=== PATIENT | male | born 1950 | race Caucasian/White ===

== ENCOUNTER 2017-06-07 13:13 | Emergency (ER) | payer OTHER ==
[~2017-06-07] VITALS: Ht 167.6 cm; Wt 82.6 kg
[2017-06-07 13:21] VITALS: BP 157/99; PULSE 75; RESP 16; TEMP 98.2; O2SAT 97
[2017-06-07] MEDS ORDERED: SIMV40TA PO (13:40)
[2017-06-07] MEDS ORDERED: LISI10TA3 PO (13:40)
[2017-06-07] MEDS ORDERED: HYDR25TA5 PO (13:40)
[2017-06-07] MEDS ORDERED: TRAM50TA PO (13:40)
[2017-06-07] MEDS ORDERED: BUSP30TA PO (13:40)
[2017-06-07] MEDS ORDERED: RESP: ALBUTEROL 2.5 MG/IPRATROPIUM 0.5 MG NEB (SCH) INH ONE (13:45)
[2017-06-07] MEDS ORDERED: SODIUM CHLORIDE 0.9% FLUSH 10 ML FLUSH IVF PRN (13:45)
[2017-06-07 13:48] VITALS: O2SAT 98
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
[2017-06-07 13:59] VITALS: BP 167/93; PULSE 65; RESP 18; O2SAT 95
[2017-06-07 14:09] LABS: AUTOMATED NEUTROPHIL # 5.6 TH/MM3 (1.8-7.7); BASOPHIL % 0.6 % (0.0-2.0); EOSINOPHIL # 0.1 TH/MM3 (0-0.4); EOSINOPHIL % 1.3 % (0.0-4.0); HEMATOCRIT 42.2 % (39.0-51.0); HEMO FLAGS DIFF FINAL; LYMPH % 18.8 % (9.0-44.0); LYMPHOCYTE # 1.5 TH/MM3 (1.0-4.8); MEAN CORPUSCULAR HEMOGLOBIN 29.6 PG (27.0-34.0); MEAN CORPUSCULAR HGB CONC 33.7 % (32.0-36.0); MONO % 7.6 % (0.0-8.0); NEUT % 71.7 % (16.0-70.0); PLATELET COUNT 197 TH/MM3 (150-450); RED CELL DISTRIBUTION WIDTH 14.1 % (11.6-17.2); WHITE BLOOD COUNT 7.8 TH/MM3 (4.0-11.0)
[2017-06-07 14:26] LABS: CHLORIDE 108 MEQ/L (98-107); POTASSIUM 3.9 MEQ/L (3.5-5.1); SODIUM (NA) 142 MEQ/L (136-145)
[2017-06-07 14:29] LABS: ANION GAP 6 MEQ/L (5-15); BICARBONATE 28.2 MEQ/L (21.0-32.0); BLOOD UREA NITROGEN 12 MG/DL (7-18); MAGNESIUM 2.1 MG/DL (1.5-2.5)
[2017-06-07 14:31] LABS: APTT (PATIENT) 26.1 SEC (24.3-30.1); INTERNATIONAL NORMALIZED RATIO 1.1 RATIO; PROTHROMBIN TIME - PATIENT 11.9 SEC (9.8-11.6)
[2017-06-07 14:32] LABS: GLOMERULAR FILTRATION RATE 100 ML/MIN (>89)
--- NOTE | 2017-06-07 14:32 | RADRPT ---
EXAM DATE/TIME: 06/07/2017 14:17 [facility] COMPARISON: No previous studies available for comparison. INDICATIONS : Chest pain and left arm numbness MEDICAL HISTORY : None. SURGICAL HISTORY : Fusion, cervical. ENCOUNTER: Initial ACUITY: 1 week PAIN SCORE: 3/10 LOCATION: Bilateral chest FINDINGS: A single view of the chest demonstrates the lungs to be symmetrically aerated without evidence of mas s, infiltrate or effusion. The cardiomediastinal contours are unremarkable. Osseous structures are intact. CONCLUSION: No acute intrathoracic disease. Fredy Yuan MD on June 07, 2017 at 14:28 Board Certified Radiologist. This report was verified electronically.
[2017-06-07 14:35] LABS: CREATINE KINASE 249 U/L (39-308)
[2017-06-07 14:48] LABS: CKMB 5.1 NG/ML (0.5-3.6)
[2017-06-07] MEDS ORDERED: PRED50 PO (15:07)
[2017-06-07] MEDS ORDERED: VENTAER INH (15:08)
[2017-06-07 15:33] VITALS: BP 152/84
--- NOTE | 2017-06-08 16:52 | EKG ---
Date Performed: 06/07/2017 Time Performed: 13:49:56 PTAGE: 66 years EKG: Sinus rhythm NON-SPECIFIC ST/T WAVE CHANGES NO PREVIOUS TRACING DOCTOR: Harman Conrad Interpretating Date/Time 06/08/2017 16:50:56
== END 2017-06-07 15:34 | disposition home or self-care (01) ==
LOC: PHED 13:13
DX: M54.12 Radiculopathy, cervical region (principal); R06.2 Wheezing; I10 Essential (primary) hypertension; E78.00 Pure hypercholesterolemia, unspecified; F17.200 Nicotine dependence, unspecified, uncomplicated; Z79.899 Other long term (current) drug therapy; Z87.39 Personal history of other diseases of the musculoskeletal system and connective tissue; Z86.59 Personal history of other mental and behavioral disorders; Z87.81 Personal history of (healed) traumatic fracture
CPT/HCPCS: 71010; 80048; 82550; 82552; 83735; 84484; 85025; 85610; 85730; 93005; 94664

== ENCOUNTER 2017-12-04 10:52 | Inpatient (IN) | payer OTHER, MEDICARE ==
[~2017-12-04] VITALS: Ht 167.6 cm; Wt 70.1 kg
[~2017-12-04 10:52] MED LIST: BUSP30TA PO; HYDR25TA5 PO; LISI10TA3 PO; PRED50 PO; SIMV40TA PO; TRAM50TA PO; VENTAER INH
--- NOTE | 2017-12-04 12:29 | PD ---
HPI Chief Complaint: Psychiatric Symptoms Time Seen by Provider: 11:41 Travel History International Travel<30 days: No Contact w/Intl Traveler<30days: No Traveled to known affect area: No History of Present Illness HPI 67-year-old male brought in under the Ravi act. Patient has history of PTSD and [facility]. He is recently had increased bizarre behavior including talking to animal in his backyard. He feels his medications are not helping him and feels suicidal. He has no medical complaints at this time. He is allergic to codeine. PFSH Past Medical History Arthritis: Yes Anxiety: Yes Depression: Yes High Cholesterol: Yes Diminished Hearing: Yes Hypertension: Yes Psychiatric: Yes (PTSD) Tetanus Vaccination: < 5 Years Influenza Vaccination: Yes Past Surgical History Neurologic Surgery: Yes (LAMINECTOMY) Tonsillectomy: Yes Social History Alcohol Use: No Tobacco Use: No Substance Use: No Allergies-Medications (Allergen,Severity, Reaction): Coded Allergies: codeine (Unverified Allergy, Unknown, 07/16/17) Reported Meds & Prescriptions Reported Meds & Active Scripts Active Ventolin Hfa 18 GM Inh (Albuterol Sulfate) 90 Mcg/Act Aer 2 Puff INH Q4-6H PRN Prednisone 50 Mg Tab 50 Mg PO DAILY 5 Days Reported Hydrochlorothiazide 25 Mg Tab 25 Mg PO DAILY Buspirone (Buspirone HCl) 30 Mg Tab 30 Mg PO BID Simvastatin 40 Mg Tab 40 Mg PO HS Lisinopril 10 Mg Tab 10 Mg PO DAILY Tramadol (Tramadol HCl) 50 Mg Tab 50 Mg PO BID PRN Review of Systems Except as stated in HPI: all other systems reviewed are Neg General / Constitutional: No: Fever Eyes: No: Visual changes HENT: No: Headaches Cardiovascular: No: Chest Pain or Discomfort Respiratory: No: Shortness of Breath Gastrointestinal: No: Abdominal Pain Genitourinary: No: Dysuria Musculoskeletal: No: Pain Skin: No Rash Neurologic: No: Weakness Psychiatric: Positive: Anxiety, Depression, Suicidal Ideations Endocrine: No: Polydipsia Hematologic/Lymphatic: No: Easy Bruising Physical Exam Narrative GENERAL: Patient is cooperative and pleasant. He is in no acute distress. SKIN: Warm and dry. Normal color. Normal turgor. No signs of trauma. HEAD: Atraumatic. Normocephalic. EYES: Pupils equal and round. No scleral icterus. No injection or drainage. ENT: No nasal bleeding or discharge. Mucous membranes pink and moist. Pharynx is clear. Airway is patent. NECK: Trachea midline. Supple and nontender. CARDIOVASCULAR: Regular rate and rhythm. RESPIRATORY: No accessory muscle use. Clear to auscultation. Breath sounds equal bilaterally. MUSCULOSKELETAL: Extremities without clubbing, cyanosis, or edema. No obvious deformities. NEUROLOGICAL: Awake and alert. No obvious cranial nerve deficits. Motor grossly within normal limits. Five out of 5 muscle strength in the arms and legs. Normal speech. PSYCHIATRIC: Appropriate mood and affect; insight and judgment normal. Data Data Orders Orders Diet Regular Basic (12/04/17 Lunch) Complete Blood Count With Diff (12/04/17 11:41) Comprehensive Metabolic Panel (12/04/17 11:41) Psych Screen (12/04/17 11:41) Drug Screen, Random Urine (12/04/17 11:41) MDM Medical Decision Making Medical Screen Exam Complete: Yes Emergency Medical Condition: Yes Differential Diagnosis Ravi act. Psychosis. PTSD. Narrative Course Psychiatric labs ordered per protocol. Patient is medically cleared for psychiatric evaluation. Condition: Stable Dennis Mondragon Dec 04, 2017 12:29
[2017-12-04 12:47] LABS: AUTOMATED NEUTROPHIL # 9.3 TH/MM3 (1.8-7.7); BASOPHIL % 0.4 % (0.0-2.0); EOSINOPHIL # 0.1 TH/MM3 (0-0.4); EOSINOPHIL % 0.5 % (0.0-4.0); HEMOGLOBIN 15.2 GM/DL (13.0-17.0); LYMPH % 9.9 % (9.0-44.0); LYMPHOCYTE # 1.1 TH/MM3 (1.0-4.8); MEAN CELL VOLUME 89.7 FL (80.0-100.0); MEAN CORPUSCULAR HGB CONC 34.6 % (32.0-36.0); MEAN PLATELET VOLUME 8.7 FL (7.0-11.0); MONO % 6.9 % (0.0-8.0); MONOCYTE # 0.8 TH/MM3 (0-0.9); NEUT % 82.3 % (16.0-70.0); PLATELET COUNT 245 TH/MM3 (150-450); RED BLOOD COUNT 4.91 MIL/MM3 (4.50-5.90); RED CELL DISTRIBUTION WIDTH 15.3 % (11.6-17.2); WHITE BLOOD COUNT 11.3 TH/MM3 (4.0-11.0)
[2017-12-04 13:03] LABS: ALBUMIN 3.8 GM/DL (3.4-5.0); ALT (GPT) 24 U/L (12-78); AST (GOT) 19 U/L (15-37); BLOOD UREA NITROGEN 15 MG/DL (7-18); CALCIUM 9.1 MG/DL (8.5-10.1); CHLORIDE 105 MEQ/L (98-107); CREATININE 0.75 MG/DL (0.60-1.30); GLOMERULAR FILTRATION RATE 103 ML/MIN (>89); GLUCOSE,RANDOM 123 MG/DL (74-106); SODIUM (NA) 138 MEQ/L (136-145)
[2017-12-04 13:05] LABS: ALKALINE PHOSPHATASE 72 U/L (45-117); TOTAL BILIRUBIN ADULT 0.3 MG/DL (0.2-1.0); TOTAL PROTEIN 7.2 GM/DL (6.4-8.2)
[2017-12-04 14:39] VITALS: BP 152/81; PULSE 69; RESP 18; TEMP 98.2; O2SAT 98
[2017-12-04] MEDS ORDERED: LORazepam 2 MG/ML VIAL IM ONE (14:40)
--- NOTE | 2017-12-04 14:59 | HHI.HP ---
Provisional Diagnosis Admission Date Dec 04, 2017 at 13:44 Wana I. Brief psychotic disorder Certification of Person's Competence To Provide Express and Informed Consent I have personally examined Vahe Holland , a person being served at [facility] on, Dec 04, 2017 14:48. Express and informed consent means consent voluntarily given in writing, by a competent person, after sufficient explanation and disclosure of the subject matter involved to enable the person to make a knowing and willful decision without any element of force, fraud, deceit, duress, or other form of constraint or coercion. This person is 18 years of age or older, is not now known to be incompetent to consent to treatment with a guardian advocate, and does not have a health care surrogate or proxy currently making medical treatment decisions. I have found this person to be one of the following: [] Competent to provide express and informed consent, as defined above, for voluntary admission to this facility and is competent to provide express and informed consent for treatment. He/she has the consistent capacity to make well reasoned, willful, and knowing decisions concerning his or her medical or mental health treatment. The person fully and consistently understands the purpose of the admission for examination/placement and is fully capable of personally exercising all rights [place] [x] Incompetent to provide express and informed consent to voluntary admission, and this is incompetent to provide express and informed consent to treatment. The person must be transferred to involuntary status and a petition for a guardian advocate filed with the Circuit Court. [] Refusing to provide express and informed consent to voluntary admission but is competent to provide express and informed consent for treatment. The person must be discharged or transferred to involuntary status. Form shall be completed within 24 hours of a person's arrival at the receiving facility and filed in the clinical record of each person: 1. Admitted on a voluntary basis 2. Permitted to provide express and informed consent to his/her own treatment 3. Allowed to transfer from involuntary to voluntary status 4. Prior to permitting a person to consent to his or her own treatment after having been previously found incompetent to consent to treatment. History of Present Illness Capacity: Lacks Capacity HPI 67-year-old male brought in under a Ravi act for bizarre behavior including psychotic symptoms. Patient reportedly is treated through the [facility] and is feeling angry due to active posttraumatic stress disorder. He describes nightmares and flashbacks. According to the Ravi act he does not want to hurt himself but does want to hurt others. According to the main ED physician, he expressed suicidal thoughts. He also stated he wants to hurt someone who he describes as a victim's advocate at the [facility]. He states his medication is not working and he is talking to animals in his backyard. The patient is a poor historian and he is obviously psychotic. He is experiencing auditory hallucinations. He is experiencing paranoid delusions. He feels that multiple people in the hospital system, the government system, etc. are trying to harm him. He provides unreasonable answers to questions, including the doses and frequency of the medications he takes. For example, he stated he took 30 mg of BuSpar 4 times a day. He demonstrates frequent looseness of associations and is unable to provide a cogent history as to why he is here. Patient's toxicology screen is negative Review of Systems Psychiatric: COMPLAINS OF: Anxiety, Confusion, Mood changes, Hallucinations, Suicidal Ideation, Homicidal Ideation Except as stated in HPI: all other systems reviewed are Neg Past Psych History Psychological trauma history Patient reports he has posttraumatic stress disorder and is treated by the [facility]. Violence risk - others (6 mos) High Violence risk - self (6 mos) High Substance Abuse History Drugs/Alcohol past 12 months Denied Past Family Social History Coded Allergies: codeine (Unverified Allergy, Unknown, 07/16/17) Active Scripts Albuterol 18 GM Inh (Ventolin Hfa 18 GM Inh) 90 Mcg/Act Aer, 2 PUFF INH Q4-6H Y for SHORTNESS OF BREATH, #1 INHALER 0 Refills Prov:Newton Ma MD 06/07/17 Prednisone (Prednisone) 50 Mg Tab, 50 MG PO DAILY for 5 Days, TAB 0 Refills Prov:Newton Ma MD 06/07/17 Reported Medications Hydrochlorothiazide (Hydrochlorothiazide) 25 Mg Tab, 25 MG PO DAILY, #30 TAB 0 Refills 06/07/17 Buspirone (Buspirone) 30 Mg Tab, 30 MG PO BID for Anxiety, TAB 0 Refills 06/07/17 Simvastatin (Simvastatin) 40 Mg Tab, 40 MG PO HS for Cholesterol Management, # 30 TAB 0 Refills 06/07/17 Lisinopril (Lisinopril) 10 Mg Tab, 10 MG PO DAILY, #30 TAB 0 Refills 06/07/17 Tramadol (Tramadol) 50 Mg Tab, 50 MG PO BID Y for PAIN, TAB 0 Refills 06/07/17 Current Medications Medications (Trade) Dose Ordered Sig/Leidy Route Start Time Stop Time Status Last Admin (Ativan Inj) 2 mg ONCE ONCE IM 12/04/17 14:40 12/04/17 14:41 12/04/17 13:50 (Ativan) 1 mg Q6H PRN PO 12/04/17 15:00 (Ativan Inj) 1 mg Q6H PRN IM 12/04/17 15:00 (Benadryl) 50 mg Q6H PRN PO 12/04/17 13:45 UNV (Benadryl Inj) 50 mg Q6H PRN IM 12/04/17 15:00 (Tylenol) 650 mg Q4H PRN PO 12/04/17 15:00 (Milk Of Magnesia Liq) 30 ml DAILY PRN PO 12/04/17 15:00 (Mag-Al Plus Susp Liq) 30 ml Q6H PRN PO 12/04/17 13:45 UNV Family Psych History Unknown. Patient poor historian. Social History Patient reports he is retired. He is not currently employed. He does receive [employer] benefits. He states he is not . He has minimal family support. He denies drug abuse and alcohol abuse. Patient's Strengths (min. 2) Verbal and has access to healthcare. Physical Exam GENERAL: SKIN: Warm and dry. HEAD: Normocephalic. EYES: No scleral icterus. No injection or drainage. NECK: Supple, trachea midline. No JVD or lymphadenopathy. CARDIOVASCULAR: Regular rate and rhythm without murmurs, gallops, or rubs. RESPIRATORY: Breath sounds equal bilaterally. No accessory muscle use. GASTROINTESTINAL: Abdomen soft, non-tender, nondistended. MUSCULOSKELETAL: No cyanosis, or edema. BACK: Nontender without obvious deformity. No CVA tenderness. Lab Results Test 12/04/17 12:20 12/04/17 12:35 White Blood Count 11.3 TH/MM3 Red Blood Count 4.91 MIL/MM3 Hemoglobin 15.2 GM/DL Hematocrit 44.0 % Mean Corpuscular Volume 89.7 FL Mean Corpuscular Hemoglobin 31.0 PG Mean Corpuscular Hemoglobin Concent 34.6 % Red Cell Distribution Width 15.3 % Platelet Count 245 TH/MM3 Mean Platelet Volume 8.7 FL Neutrophils (%) (Auto) 82.3 % Lymphocytes (%) (Auto) 9.9 % Monocytes (%) (Auto) 6.9 % Eosinophils (%) (Auto) 0.5 % Basophils (%) (Auto) 0.4 % Neutrophils # (Auto) 9.3 TH/MM3 Lymphocytes # (Auto) 1.1 TH/MM3 Monocytes # (Auto) 0.8 TH/MM3 Eosinophils # (Auto) 0.1 TH/MM3 Basophils # (Auto) 0.0 TH/MM3 CBC Comment DIFF FINAL Differential Comment Blood Urea Nitrogen 15 MG/DL Creatinine 0.75 MG/DL Random Glucose 123 MG/DL Total Protein 7.2 GM/DL Albumin 3.8 GM/DL Calcium Level 9.1 MG/DL Alkaline Phosphatase 72 U/L Aspartate Amino Transf (AST/SGOT) 19 U/L Alanine Aminotransferase (ALT/SGPT) 24 U/L Total Bilirubin 0.3 MG/DL Sodium Level 138 MEQ/L Potassium Level 3.9 MEQ/L Chloride Level 105 MEQ/L Carbon Dioxide Level 28.0 MEQ/L Anion Gap 5 MEQ/L Estimat Glomerular Filtration Rate 103 ML/MIN Urine Opiates Screen NEG Urine Barbiturates Screen NEG Urine Amphetamines Screen NEG Urine Benzodiazepines Screen NEG Urine Cocaine Screen NEG Urine Cannabinoids Screen NEG Mental Status Examination Appearance: Appropriate Consciousness: Alert Orientation: Person Motor Activity: Normal gait Speech: Rapid Language: Perseveration Fund of Knowledge: Adequate Attention and Concentration: Inadequate Memory: Impaired Mood: Other Affect: Labile Thought Process & Associations: Loose associations, Circumstantial, Disorganized, Tangential Thought Content: Bizarre thinking, Hallucinations, Preoccupations, Delusional Hallucination Type: Auditory Delusion Type: None, Paranoid Suicidal Ideation: Yes Suicidal Plan: No Suicidal Intention: No Homicidal Ideation: Yes Homicidal Plan: No Homicidal Intention: No Insight: Poor Judgment: Impulsive Assessment & Plan Problem List: (1) Brief psychotic disorder ICD Codes: F23 - Brief psychotic disorder Assessment & Plan Estimated LOS: days. 67-year-old male presents under a Ravi act with history of suicidal ideation, homicidal ideation, paranoid delusions of being persecuted by government and healthcare workers, loose associations and auditory hallucinations. Patient remains a poor historian but this adds to his risks of harming himself or others as he is obviously confused and disorganized. He has underlying medical conditions for which she is supposed to take multiple medicines. He appears unable to care for himself and provides erroneous answers to the medicines and doses that he takes. For these reasons he is being admitted for further evaluation and treatment. This physician has ordered a CBC and comprehensive metabolic panel to determine if any infectious process or metabolic process is causing or contributing to his psychosis and confusion. Additionally, this physician has ordered a thyroid -stimulating hormone level, vitamin B-12 level and vitamin D level as the patient may have deficiencies in these areas which cause or contribute to his psychosis and confusion. This physician has ordered a hep us consult to help manage what appears to be COPD-type symptoms, cardiovascular disease, hypertension, etc. Additionally, this physician has ordered an EKG to determine the patient's cardiac conduction status as psychotropic medicines as yet to be prescribed, may adversely affect the electrical system of his heart. This physician spoke with the patient's nurse, Cecelia, regarding his recent behavior. Case management will also be involved to assist with information gathering and disposition planning. Arnol Werner MD Dec 04, 2017 14:59
[2017-12-04] MEDS ORDERED: diphenhydrAMINE HCL 50 MG CAP PO PRN (15:00)
[2017-12-04] MEDS ORDERED: diphenhydrAMINE HCL 50 MG/ML VIAL IM PRN (15:00)
[2017-12-04] MEDS ORDERED: MAGNESIUM HYDROXIDE SUSP 30 ML CUP PO PRN (15:00)
[2017-12-04] MEDS ORDERED: LORazepam 2 MG/ML VIAL IM PRN (15:00)
[2017-12-04] MEDS ORDERED: ALUMINUM/MAGNESIUM/SIMETH 30 ML CUP PO PRN (15:00)
[2017-12-04 17:01] VITALS: BP 160/89; PULSE 76; RESP 18; O2SAT 96
[2017-12-04 18:00] VITALS: BP 162/85; PULSE 77; RESP 18; TEMP 98
[2017-12-05 05:40] VITALS: BP 175/100; PULSE 82; RESP 18; TEMP 97.6; O2SAT 98
[2017-12-05] MEDS ORDERED: cloNIDine HCL 0.1 MG TAB PO PRN (07:30)
[2017-12-05] MEDS ORDERED: RESP: ALBUTEROL 2.5 MG/IPRATROPIUM 0.5 MG NEB (PRN) NEB (09:15)
--- NOTE | 2017-12-05 09:30 | PD.CONS ---
HPI Service [facility] Hospitalists Consult Requested By Psychiatry Reason for Consult Medical management Primary Care Physician [facility] Diagnoses: History of Present Illness 57 year-old man with a history of PTSD, schizophrenia, hypertension was brought in and admitted to inpatient psychiatry secondary to suicidal and homicidal ideations. Patient is currently under Ravi act. He was noted patient to have increased and worsening bizarre behavior. He denies any homicidal ideation during my exam. He has no chest pain or shortness of breath Review of Systems Except as stated in HPI: all other systems reviewed are Neg Past Family Social History Allergies: Coded Allergies: codeine (Unverified Allergy, Unknown, 07/16/17) Past Medical History Arthritis: Yes Anxiety: Yes Depression: Yes High Cholesterol: Yes Diminished Hearing: Yes Hypertension: Yes Psychiatric: Yes (PTSD) Past Surgical History Neurologic Surgery: Yes (LAMINECTOMY) Tonsillectomy: Yes Family History Noncontributory Social History Alcohol Use: No Tobacco Use: No Substance Use: No Physical Exam Vital Signs Vital Signs Date Time Temp Pulse Resp B/P (MAP) Pulse Ox O2 Delivery O2 Flow Rate FiO2 12/05/17 05:40 97.6 82 18 175/100 (125) 98 12/04/17 18:00 98.0 77 18 162/85 (110) 12/04/17 17:46 12/04/17 17:01 76 18 160/89 (112) 96 Room Air 12/04/17 16:38 12/04/17 14:39 98.2 69 18 152/81 (104) 98 Room Air Physical Exam GENERAL: This is a well-nourished, well-developed patient, in no apparent distress. SKIN: No rashes, ecchymoses or lesions. Cool and dry. HEAD: Atraumatic. Normocephalic. No temporal or scalp tenderness. EYES: Pupils equal round and reactive. Extraocular motions intact. No scleral icterus. No injection or drainage. ENT: Nose without bleeding, purulent drainage or septal hematoma. Throat without erythema, tonsillar hypertrophy or exudate. Uvula midline. Airway patent. NECK: Trachea midline. No JVD or lymphadenopathy. Supple, nontender, no meningeal signs. CARDIOVASCULAR: Regular rate and rhythm without murmurs, gallops, or rubs. RESPIRATORY: Clear to auscultation. Breath sounds equal bilaterally. No wheezes , rales, or rhonchi. GASTROINTESTINAL: Abdomen soft, non-tender, nondistended. No hepato-splenomegaly , or palpable masses. No guarding. MUSCULOSKELETAL: Extremities without clubbing, cyanosis, or edema. No joint tenderness, effusion, or edema noted. No calf tenderness. Negative Homans sign bilaterally. NEUROLOGICAL: Awake and alert. Cranial nerves II through XII intact. Motor and sensory grossly within normal limits. Five out of 5 muscle strength in all muscle groups. Normal speech. Laboratory Laboratory Tests Test 12/04/17 12:20 12/04/17 12:35 White Blood Count 11.3 Red Blood Count 4.91 Hemoglobin 15.2 Hematocrit 44.0 Mean Corpuscular Volume 89.7 Mean Corpuscular Hemoglobin 31.0 Mean Corpuscular Hemoglobin Concent 34.6 Red Cell Distribution Width 15.3 Platelet Count 245 Mean Platelet Volume 8.7 Neutrophils (%) (Auto) 82.3 Lymphocytes (%) (Auto) 9.9 Monocytes (%) (Auto) 6.9 Eosinophils (%) (Auto) 0.5 Basophils (%) (Auto) 0.4 Neutrophils # (Auto) 9.3 Lymphocytes # (Auto) 1.1 Monocytes # (Auto) 0.8 Eosinophils # (Auto) 0.1 Basophils # (Auto) 0.0 CBC Comment DIFF FINAL Differential Comment Blood Urea Nitrogen 15 Creatinine 0.75 Random Glucose 123 Total Protein 7.2 Albumin 3.8 Calcium Level 9.1 Alkaline Phosphatase 72 Aspartate Amino Transf (AST/SGOT) 19 Alanine Aminotransferase (ALT/SGPT) 24 Total Bilirubin 0.3 Sodium Level 138 Potassium Level 3.9 Chloride Level 105 Carbon Dioxide Level 28.0 Anion Gap 5 Estimat Glomerular Filtration Rate 103 Urine Opiates Screen NEG Urine Barbiturates Screen NEG Urine Amphetamines Screen NEG Urine Benzodiazepines Screen NEG Urine Cocaine Screen NEG Urine Cannabinoids Screen NEG Result Diagram: 12/04/17 1220 12/04/17 1220 Assessment and Plan Assessment and Plan 67 year-old man with Acute mood behavior Suicidal ideations History of PTSD/schizophrenia Management per psychiatry Continue current Ravi act Hypertension Resume lisinopril and hydrochlorothiazide Hyperlipidemia Resume statin Elevated blood glucose level Check hemoglobin A1c Leukocytosis Secondary to stress reactive, continue to monitor DVT prophylaxis: Encourage ambulation Thank you for this consultation Code Status Full code Discussed Condition With Patient Sacha Lanier MD Dec 05, 2017 09:30
[2017-12-05 10:11] LABS: BASOPHIL % 0.5 % (0.0-2.0); EOSINOPHIL # 0.1 TH/MM3 (0-0.4); EOSINOPHIL % 0.6 % (0.0-4.0); HEMATOCRIT 46.1 % (39.0-51.0); HEMOGLOBIN 15.8 GM/DL (13.0-17.0); LYMPH % 12.7 % (9.0-44.0); LYMPHOCYTE # 1.1 TH/MM3 (1.0-4.8); MEAN CELL VOLUME 89.9 FL (80.0-100.0); MEAN CORPUSCULAR HEMOGLOBIN 30.9 PG (27.0-34.0); MEAN CORPUSCULAR HGB CONC 34.4 % (32.0-36.0); MEAN PLATELET VOLUME 8.6 FL (7.0-11.0); MONO % 8.1 % (0.0-8.0); MONOCYTE # 0.7 TH/MM3 (0-0.9); NEUT % 78.1 % (16.0-70.0); PLATELET COUNT 258 TH/MM3 (150-450); RED BLOOD COUNT 5.13 MIL/MM3 (4.50-5.90); RED CELL DISTRIBUTION WIDTH 15.5 % (11.6-17.2); WHITE BLOOD COUNT 8.9 TH/MM3 (4.0-11.0)
[2017-12-05 10:35] LABS: ALBUMIN 3.5 GM/DL (3.4-5.0); AST (GOT) 20 U/L (15-37); BICARBONATE 22.9 MEQ/L (21.0-32.0); BLOOD UREA NITROGEN 17 MG/DL (7-18); CALCIUM 8.9 MG/DL (8.5-10.1); CHLORIDE 103 MEQ/L (98-107); GLOMERULAR FILTRATION RATE 96 ML/MIN (>89); GLUCOSE,RANDOM 125 MG/DL (74-106); SODIUM (NA) 136 MEQ/L (136-145)
[2017-12-05 10:37] LABS: CHOLESTEROL 226 MG/DL (120-200); TRIGLYCERIDES 151 MG/DL (42-150)
[2017-12-05 11:04] LABS: ALKALINE PHOSPHATASE 75 U/L (45-117); ALT (GPT) 23 U/L (12-78); CHOLESTEROL/ HDL RATIO 5.25 RATIO; LDL CHOLESTEROL 153 MG/DL (0-99); TOTAL BILIRUBIN ADULT 0.5 MG/DL (0.2-1.0)
[2017-12-05] MEDS: HYDROCHLOROTHIAZIDE 25 MG TAB PO SCH (14:50)
[2017-12-05] MEDS: LISINOPRIL 10 MG TAB PO SCH (14:50)
--- NOTE | 2017-12-05 15:13 | PD.PSY.CON ---
Provisional Diagnosis Admission Date Dec 04, 2017 at 13:44 Rewey I. 1. Brief psychotic disorder 2. History of PTSD Rewey II. Deferred History of Present Illness Service Psychiatry Consult Requested By Dr. Werner Reason for Consult Second opinion for involuntary psychiatric hospitalization Primary Care Physician [facility] HPI From Dr. Werner's H&P: 67-year-old male brought in under a Ravi act for bizarre behavior including psychotic symptoms. Patient reportedly is treated through the [facility] system and is feeling angry due to active posttraumatic stress disorder. He describes nightmares and flashbacks. According to the Ravi act he does not want to hurt himself but does want to hurt others. According to the main ED physician, he expressed suicidal thoughts. He also stated he wants to hurt someone who he describes as a victim's advocate at the [facility]. He states his medication is not working and he is talking to animals in his backyard. The patient is a poor historian and he is obviously psychotic. He is experiencing auditory hallucinations. He is experiencing paranoid delusions. He feels that multiple people in the hospital system, the government system, etc. are trying to harm him. He provides unreasonable answers to questions, including the doses and frequency of the medications he takes. For example, he stated he took 30 mg of BuSpar 4 times a day. He demonstrates frequent looseness of associations and is unable to provide a cogent history as to why he is here. Patient's toxicology screen is negative On my examination today: Patient seen and examined with nurse. Chart reviewed. Case discussed with nursing staff. Prior to my evaluation, I observe the patient yelling and agitated at the phone on the unit. On my evaluation today, patient presents as oddly related. He describes himself as being in "a highly agitated state." His thought process is tangential. He appears internally stimulated and describes "irritation with what I see and touch and smell." He is guarded. He denies SI/HI but seems unreliable to contract for safety. Mood is irritable and affect is consistent with stated mood. Nurse has obtained collateral information from patient's sister, and I have reviewed this with her. Remainder of the psychiatric ROS is negative. No physical complaints. Past psychiatric history: The patient reports a history of PTSD. He says that he follows at the [facility] clinic with Shauna Corral. When I ask about a history of previous psychiatric admissions or suicide attempts, he replies "that's classified." Family history: The patient denies a family history of mental illness. Chemical dependency history: The patient alludes to some sort of history of substance use but insists that it is "in the past." Sr. reports history of alcohol use problems per nurse. Social history: The patient served in the [employer]. 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 He has a service dog. Social history is limited because of patient's current psychiatric condition. Review of Systems ROS Limitations: Psychotic, Poor Historian Except as stated in HPI: all other systems reviewed are Neg Past Family Social History Coded Allergies: codeine (Unverified Allergy, Unknown, 07/16/17) Past Medical History See electronic medical record Active Scripts Albuterol 18 GM Inh (Ventolin Hfa 18 GM Inh) 90 Mcg/Act Aer, 2 PUFF INH Q4-6H Y for SHORTNESS OF BREATH, #1 INHALER 0 Refills Prov:Newton Ma MD 06/07/17 Prednisone (Prednisone) 50 Mg Tab, 50 MG PO DAILY for 5 Days, TAB 0 Refills Prov:Newton Ma MD 06/07/17 Reported Medications Hydrochlorothiazide (Hydrochlorothiazide) 25 Mg Tab, 25 MG PO DAILY, #30 TAB 0 Refills 06/07/17 Buspirone (Buspirone) 30 Mg Tab, 30 MG PO BID for Anxiety, TAB 0 Refills 06/07/17 Simvastatin (Simvastatin) 40 Mg Tab, 40 MG PO HS for Cholesterol Management, # 30 TAB 0 Refills 06/07/17 Lisinopril (Lisinopril) 10 Mg Tab, 10 MG PO DAILY, #30 TAB 0 Refills 06/07/17 Tramadol (Tramadol) 50 Mg Tab, 50 MG PO BID Y for PAIN, TAB 0 Refills 06/07/17 Current Medications Medications (Trade) Dose Ordered Sig/Leidy Route Start Time Stop Time Status Last Admin (Ativan) 1 mg Q6H PRN PO 12/04/17 15:00 (Ativan Inj) 1 mg Q6H PRN IM 12/04/17 15:00 (Benadryl) 50 mg Q6H PRN PO 12/04/17 15:00 (Benadryl Inj) 50 mg Q6H PRN IM 12/04/17 15:00 (Tylenol) 650 mg Q4H PRN PO 12/04/17 15:00 (Milk Of Magnesia Liq) 30 ml DAILY PRN PO 12/04/17 15:00 (Mag-Al Plus Susp Liq) 30 ml Q6H PRN PO 12/04/17 15:00 (Catapres) 0.1 mg Q8HR PRN PO 12/05/17 07:30 12/05/17 08:08 (Hydrodiuril) 25 mg DAILY PO 12/05/17 11:00 12/05/17 14:50 (Prinivil) 10 mg DAILY PO 12/05/17 10:00 12/05/17 14:50 (Pravachol) 80 mg HS PO 12/05/17 21:00 (Duoneb Neb) 1 ampule Q2HR NEB PRN NEB 12/05/17 09:15 Family Psych History See above Social History see above Patient's Strengths (min. 2) In a monitored setting. Verbally fluent. Physical Exam Physical examination completed by hospitalist enrollment consultant. On my examination today, the patient appears to be in no acute physical distress. No motor abnormalities noted. No signs of withdrawal or intoxication noted. Labs and vitals reviewed: Vital Signs Vital Signs Date Time Temp Pulse Resp B/P (MAP) Pulse Ox O2 Delivery O2 Flow Rate FiO2 12/05/17 05:40 97.6 82 18 175/100 (125) 98 12/04/17 17:01 Room Air Lab Results Test 12/05/17 09:40 White Blood Count 8.9 TH/MM3 Red Blood Count 5.13 MIL/MM3 Hemoglobin 15.8 GM/DL Hematocrit 46.1 % Mean Corpuscular Volume 89.9 FL Mean Corpuscular Hemoglobin 30.9 PG Mean Corpuscular Hemoglobin Concent 34.4 % Red Cell Distribution Width 15.5 % Platelet Count 258 TH/MM3 Mean Platelet Volume 8.6 FL Neutrophils (%) (Auto) 78.1 % Lymphocytes (%) (Auto) 12.7 % Monocytes (%) (Auto) 8.1 % Eosinophils (%) (Auto) 0.6 % Basophils (%) (Auto) 0.5 % Neutrophils # (Auto) 7.0 TH/MM3 Lymphocytes # (Auto) 1.1 TH/MM3 Monocytes # (Auto) 0.7 TH/MM3 Eosinophils # (Auto) 0.1 TH/MM3 Basophils # (Auto) 0.0 TH/MM3 CBC Comment DIFF FINAL Differential Comment Blood Urea Nitrogen 17 MG/DL Creatinine 0.80 MG/DL Random Glucose 125 MG/DL Total Protein 7.0 GM/DL Albumin 3.5 GM/DL Calcium Level 8.9 MG/DL Alkaline Phosphatase 75 U/L Aspartate Amino Transf (AST/SGOT) 20 U/L Alanine Aminotransferase (ALT/SGPT) 23 U/L Total Bilirubin 0.5 MG/DL Sodium Level 136 MEQ/L Potassium Level 4.0 MEQ/L Chloride Level 103 MEQ/L Carbon Dioxide Level 22.9 MEQ/L Anion Gap 10 MEQ/L Estimat Glomerular Filtration Rate 96 ML/MIN Triglycerides Level 151 MG/DL Cholesterol Level 226 MG/DL LDL Cholesterol 153 MG/DL HDL Cholesterol 43.0 MG/DL Cholesterol/HDL Ratio 5.25 RATIO Vitamin B12 Level 448 PG/ML 25-Hydroxy Vitamin D Total 30.2 ng/ML Thyroid Stimulating Hormone 3rd Gen 0.332 uIU/ML Ethyl Alcohol Level LESS THAN 3 MG/DL Labs reviewed. TSH low. EKG sinus rhythm QTcH 373ms. Mental Status Examination Appearance: Appropriate Consciousness: Alert, Vigilant Orientation: Person, Place (at least) Motor Activity: Normal gait Speech: Pressured Language: Perseveration Fund of Knowledge: Adequate Attention and Concentration: Inadequate Memory: Impaired Mood: Irritable Affect: Irritable Thought Process & Associations: Tangential Thought Content: Bizarre thinking, Hallucinations, Preoccupations, Delusional Hallucination Type: Auditory (Appears int stim) Delusion Type: Paranoid Suicidal Ideation: No (unreliable to contract for safety) Suicidal Plan: No Suicidal Intention: No Homicidal Ideation: No (unreliable to contract for safety) Homicidal Plan: No Homicidal Intention: No Insight: Poor Judgment: Poor Assessment & Plan Problem List: (1) Brief psychotic disorder ICD Codes: F23 - Brief psychotic disorder Assessment & Plan Given the circumstances of the patient's presentation here and presentation on my examination today, I concur with Dr. Werner that the patient meets criteria for involuntary psychiatric hospitalization under the Ravi act. I completed the second opinion paperwork. I note that Dr. Werner has additionally requested a healthcare surrogate and guardian advocate, and I have instructed the nurse to obtain consent from healthcare surrogate for all medication and treatment. I will be assuming care of the patient. Patient remains psychotic today, and differential diagnosis includes primary psychiatric illness such as schizophrenia, drug induced psychosis, psychosis due to general medical condition. --TSH low. Check free T4. Also check ammonia, JULIO CÉSAR, RPR, HIV as potential causes of psychosis. Obtain outpatient treatment records. If no previous evidence of psychosis, to consider MRI brain. --Check extended UTox. Possible h/o EtOH. I will add CIWA with Ativan, thiamine/folate, seizure/fall prec. Exam not consistent with DTs presently. --I will offer Zyprexa Zydis 5mg PO qHS for empiric management of patient's psychosis. This agent would also be helpful in the event that the patient is suffering from a mood disorder with psychotic features, such as BPAD mixed or manic state. --Hospitalist input noted and appreciated. --Continue other medications and care as ordered. Discharge Planning Pending psychiatric stabilization Request HC Surrog/Guard Advoc?: Yes Rajeev Weber MD Dec 05, 2017 15:13
[2017-12-05] MEDS ORDERED: LORazepam 2 MG TAB PO PRN (15:15)
[2017-12-05] MEDS ORDERED: LORazepam 2 MG/ML VIAL IV PUSH PRN ×4 (15:15)
[2017-12-05] MEDS ORDERED: LORazepam 1 MG TAB PO PRN (15:15)
[2017-12-05] MEDS ORDERED: FLUMAZENIL 0.5 MG/5 ML VIAL IV PUSH PRN (15:15)
[2017-12-05 16:23] LABS: HEMOGLOBIN A1C 5.8 % (4.3-6.0)
[2017-12-05 16:45] VITALS: BP 165/85; PULSE 80; RESP 18; TEMP 98.8; O2SAT 97
[2017-12-05] MEDS: PRAVASTATIN SOD 80 MG TAB PO SCH (20:36)
[2017-12-05] MEDS: OLANZapine ODT 5 MG TAB PO SCH ×2 (20:37→21:00)
--- NOTE | 2017-12-05 22:33 | EKG ---
Date Performed: 12/05/2017 Time Performed: 11:12:08 PTAGE: 67 years EKG: Sinus rhythm SEPTAL MYOCARDIAL INFARCTION , OF INDETERMINATE AGE MODERATE T-WAVE ABNORMALITY, CONSIDER INFERIOR I SCHEMIA ABNORMAL ECG PREVIOUS TRACING : 06/07/2017 13.49 DOCTOR: Reginaldo Cantrell Interpretating Date/Time 12/05/2017 22:32:09
[2017-12-06 05:58] VITALS: BP 151/87; PULSE 73; RESP 18; TEMP 96.7; O2SAT 98
[2017-12-06] MEDS: THIAMINE HCL 100 MG TAB PO SCH (09:19)
[2017-12-06] MEDS: FOLIC ACID 1 MG TAB PO SCH (09:19)
[2017-12-06] MEDS: HYDROCHLOROTHIAZIDE 25 MG TAB PO SCH (09:19)
[2017-12-06] MEDS: LISINOPRIL 10 MG TAB PO SCH ×2 (09:19→20:54)
--- NOTE | 2017-12-06 10:30 | HHI.PYPN ---
Subjective Chief Complaint: Psychosis Remarks Patient seen and examined with counselor. Chart reviewed. Patient refused Zyprexa when offered. Case discussed with nurse and in treatment team. Per nurse, patient was agitated and cursing this morning. He is noted by OT to be grandiose and intrusive. On my exam, patient remains oddly related with stilted , overly formal speech. He smiles inappropriately and appears internally stimulated. He reports that his sleep is disrupted, which he attributes to hyperarousal from PTSD. He exhibits some loose associations. He does try to disrobe at one point to show us his hernias. Affect is irritable. No physical complaints. With patient's permission, spoke with outpatient mental health provider Shauna Corral at [facility] [phone]. She notes that patient has chart history of depression and PTSD. He frequently abuses cannabis. He is prescribed BuSpar and hydroxyzine, but his adherence with medications is spotty at best. He has previous trials of Abilify, Seroquel, several SSRIs, Wellbutrin , and trazodone. He has been jailed in the past for drug offenses but has no history of violent behavior that Dr. Corral is aware of. He participated in the [facility] program in the past. Review of Systems ROS Limitations: Psychotic, Poor Historian Except as stated in HPI: all other systems reviewed are Neg Mental Status Examination Appearance: Appropriate Consciousness: Alert, Vigilant Orientation: Person, Place (at least) Motor Activity: Normal gait Speech: Rapid Language: Perseveration Fund of Knowledge: Adequate Attention and Concentration: Inadequate Memory: Impaired Mood: Irritable Affect: Irritable Thought Process & Associations: Loose associations, Tangential Thought Content: Bizarre thinking, Hallucinations, Preoccupations, Delusional Hallucination Type: Other (Remains int stim) Delusion Type: Paranoid Suicidal Ideation: No (unreliable to contract for safety) Suicidal Plan: No Suicidal Intention: No Homicidal Ideation: No (unreliable to contract for safety) Homicidal Plan: No Homicidal Intention: No Insight: Poor Judgment: Poor Results Labs Item Value Date Time Ammonia 39 MCMOL/L H 12/06/17 1140 Free Thyroxine 1.09 NG/DL 12/06/17 1140 Ammonia level mildly elevated, likely incidental. FT4 wnl. ETox pending. Serologies pending. Vitals/IOs Vital Signs Date Time Temp Pulse Resp B/P (MAP) Pulse Ox O2 Delivery O2 Flow Rate FiO2 12/06/17 05:58 96.7 73 18 151/87 (108) 98 12/04/17 17:01 Room Air Assessment & Plan Problem List: (1) Brief psychotic disorder ICD Codes: F23 - Brief psychotic disorder Assessment & Plan Patient remains actively psychotic, irritable and easily agitated. He refused Zyprexa last night, and given reported adherence issues in the community, I think it is prudent to switch to an agent with a readily available MARTI. D/c Zyprexa and start Risperdal M-Tabs 1mg PO BID with Haldol 5mg IM BID p.r.n. refuses PO Risperdal. Could consider Consta or Sustenna. I will additionally provide Haldol IM p.r.n. severe agitation as patient is growing increasingly irritable. Psychosis is apparently not part of patient's diagnostic schema outpatient and so patient has likely not been worked up for psychosis. I will therefore check MRI brain as well as follow up outstanding labs. I also suspect some degree of personality pathology and will request neuropsychology consult for MMPI. Continue to monitor on high acuity unit. Continue other medications and care as ordered. Justification for Cont. Inpt. Medication changes. Concern for impairment in safety. Impairment in reality construction. High risk for decompensation in less restrictive environment. Discharge Planning Pending psychiatric stabilization Request HC Surrog/Guard Advoc?: Yes Rajeev Weber MD Dec 06, 2017 10:30
--- NOTE | 2017-12-06 13:16 | HHI.PR ---
Subjective Remarks Patient seen and examined Chest pain, shortness of breath States he missed his appointment for left hernia repair today Objective Vitals Vital Signs Date Time Temp Pulse Resp B/P (MAP) Pulse Ox O2 Delivery O2 Flow Rate FiO2 12/06/17 05:58 96.7 73 18 151/87 (108) 98 12/05/17 16:45 98.8 80 18 165/85 (111) 97 Result Diagram: 12/05/17 0940 12/05/17 0940 Objective Remarks GENERAL: NAD SKIN: Warm and dry. HEAD: Normocephalic. EYES: No scleral icterus. No injection or drainage. NECK: Supple, trachea midline. No JVD or lymphadenopathy. CARDIOVASCULAR: Regular rate and rhythm without murmurs, gallops, or rubs. RESPIRATORY: Breath sounds equal bilaterally. No accessory muscle use. GASTROINTESTINAL: Abdomen soft, non-tender, nondistended. MUSCULOSKELETAL: No cyanosis, or edema. : left hernia BACK: Nontender without obvious deformity. No CVA tenderness. A/P Assessment and Plan 67 year-old man with Acute mood behavior Suicidal ideations History of PTSD/schizophrenia Management per psychiatry Continue current Ravi act Hypertension Continue lisinopril however will increase to 10 mg by mouth twice a day and continue hydrochlorothiazide Hyperlipidemia Continue statin Elevated blood glucose level Hemoglobin A1c 5.8 Leukocytosis-resolved Secondary to stress reactive, continue to monitor Left hernia Outpatient follow-up surgery for repair DVT prophylaxis: Encourage ambulation Sacha Lanier MD Dec 06, 2017 13:16
--- NOTE | 2017-12-06 13:41 | PD.TTN ---
Patient Problems 1. Discharge planning 2. Medication compliance 3. Knowledge deficit 4. Lack of coping skills Progress Toward Goals Provider Present: Dr. Kortney Weber Provider Input: Pt medication regiment has been adjusted including addition of Zyprexa with possible implementation of long acting injection at some point. Nurse(s) Present: Meenakshi Malcolm RN Nurse(s) Input: Pt appears agitated, blunted, flat, demanding and medication compliant. Psychiatric Counselors Present: ODILON Mishra Psych Therapist Input: Pt appears easily agitated, bizarre, delusional, psychotic, disorganized and somewhat guarded. [facility] and appears to be minimizing symptoms at this time. Insight and judgment into condition and need for care appeared poor. Pt appears to struggle with coping and emotional regulation skills. He has been compliant with medication regiment. Group Spec/RT/OT/GONZALEZ Present: LISA Moses Group Spec/RT/OT/GONZALEZ Input: Pt attends groups but appears intrusive and grandiose. Discharge Plan Pt will be discharged home and will continue to follow up with [facility] after discharge for outpatient services. Documentation Scribe: ODILON Mishra Jonathan LMHC Dec 06, 2017 13:41
[2017-12-06] MEDS ORDERED: HALOPERIDOL LACTATE 5 MG/ML AMP IM PRN ×2 (13:45)
[2017-12-06 17:21] LABS: HEMOGLOBIN A1C 5.8 % (4.3-6.0)
[2017-12-06 18:10] VITALS: BP 150/83; PULSE 84; RESP 18; TEMP 97.1; O2SAT 97
[2017-12-06] MEDS: PRAVASTATIN SOD 80 MG TAB PO SCH (20:54)
[2017-12-06] MEDS: risperiDONE ODT 1 MG TAB PO SCH (20:54)
[2017-12-07 05:52] VITALS: BP 170/91; PULSE 73; RESP 18; TEMP 97.6; O2SAT 97
[2017-12-07] MEDS: HYDROCHLOROTHIAZIDE 25 MG TAB PO SCH (08:39)
[2017-12-07] MEDS: FOLIC ACID 1 MG TAB PO SCH (08:39)
[2017-12-07] MEDS: LISINOPRIL 10 MG TAB PO SCH ×2 (08:40→20:33)
[2017-12-07] MEDS: risperiDONE ODT 1 MG TAB PO SCH ×2 (08:40→20:33)
[2017-12-07] MEDS: THIAMINE HCL 100 MG TAB PO SCH (09:00)
--- NOTE | 2017-12-07 11:03 | HHI.PR ---
Subjective Remarks Patient seen and examined No acute event overnight Taking his meds Objective Vitals Vital Signs Date Time Temp Pulse Resp B/P (MAP) Pulse Ox O2 Delivery O2 Flow Rate FiO2 12/07/17 05:52 97.6 73 18 170/91 (117) 97 12/06/17 18:10 97.1 84 18 150/83 (105) 97 Result Diagram: 12/05/17 0940 12/05/17 0940 Objective Remarks GENERAL: NAD SKIN: Warm and dry. HEAD: Normocephalic. EYES: No scleral icterus. No injection or drainage. NECK: Supple, trachea midline. No JVD or lymphadenopathy. CARDIOVASCULAR: Regular rate and rhythm without murmurs, gallops, or rubs. RESPIRATORY: Breath sounds equal bilaterally. No accessory muscle use. GASTROINTESTINAL: Abdomen soft, non-tender, nondistended. MUSCULOSKELETAL: No cyanosis, or edema. : left hernia BACK: Nontender without obvious deformity. No CVA tenderness. A/P Assessment and Plan 67 year-old man with Acute mood behavior Suicidal ideations History of PTSD/schizophrenia Management per psychiatry Continue current Ravi act Hypertension Continue [id number] mg by mouth twice a day and hydrochlorothiazide Hyperlipidemia Continue statin Elevated blood glucose level Hemoglobin A1c 5.8 Leukocytosis-resolved Secondary to stress reactive, continue to monitor Left hernia Outpatient follow-up surgery for repair DVT prophylaxis: Encourage ambulation [facility] will sign off, Reconsult Sacha Santos MD Dec 07, 2017 11:03
[2017-12-07] MEDS: LORazepam 1 MG TAB PO PRN (15:55)
--- NOTE | 2017-12-07 17:53 | HHI.PYPN ---
Subjective Chief Complaint: Psychosis Remarks Patient was seen and case discussed with nursing. No was reviewed from yesterday. No reports of agitation were given today per nursing. He has been compliant with his medications. He remains overly formal and disorganized. Patient continues to have poor insight into his admission. Per nursing he has at times grandiose feeling superior to others and believing he has special musical ability. He was asked about some of the threatening statements he made to [employer] that he would be out in the community at the same time that they were again patient downplays this as a miscommunication. Nursing notes Angeloisaiah in his allergies so we will change his IMs to Zyprexa Mental Status Examination Appearance: Appropriate Consciousness: Alert, Vigilant Orientation: Person, Place (at least) Motor Activity: Normal gait Speech: Rapid Language: Perseveration Fund of Knowledge: Adequate Attention and Concentration: Inadequate Memory: Impaired Mood: Irritable Affect: Irritable Thought Process & Associations: Loose associations, Tangential Thought Content: Bizarre thinking, Hallucinations, Preoccupations, Delusional Hallucination Type: Other (Remains int stim) Delusion Type: Paranoid Suicidal Ideation: No (unreliable to contract for safety) Suicidal Plan: No Suicidal Intention: No Homicidal Ideation: No (unreliable to contract for safety) Homicidal Plan: No Homicidal Intention: No Insight: Poor Judgment: Poor Results Vitals/IOs Vital Signs Date Time Temp Pulse Resp B/P (MAP) Pulse Ox O2 Delivery O2 Flow Rate FiO2 12/07/17 05:52 97.6 73 18 170/91 (117) 97 12/04/17 17:01 Room Air Assessment & Plan Problem List: (1) Brief psychotic disorder ICD Codes: F23 - Brief psychotic disorder Assessment & Plan Change IM backup to Zyprexa. Justification for Cont. Inpt. Patient would decompensate in a less restrictive setting Request HC Surrog/Guard Advoc?: Yes Emigdoi Granado DO Dec 07, 2017 17:53
[2017-12-07] MEDS ORDERED: OLANZapine IM 10 MG VIAL IM PRN (18:00)
[2017-12-07 18:02] VITALS: BP 151/85; PULSE 94; RESP 19; TEMP 99.1; O2SAT 98
[2017-12-07] MEDS: PRAVASTATIN SOD 80 MG TAB PO SCH (20:33)
[2017-12-08 06:05] VITALS: BP 136/83; PULSE 77; RESP 18; TEMP 97.7; O2SAT 95
[2017-12-08] MEDS: HYDROCHLOROTHIAZIDE 25 MG TAB PO SCH (08:32)
[2017-12-08] MEDS: LISINOPRIL 10 MG TAB PO SCH ×2 (08:32→20:24)
[2017-12-08] MEDS: risperiDONE ODT 1 MG TAB PO SCH ×2 (08:32→20:24)
[2017-12-08] MEDS: FOLIC ACID 1 MG TAB PO SCH (08:32)
[2017-12-08] MEDS: THIAMINE HCL 100 MG TAB PO SCH (08:35)
--- NOTE | 2017-12-08 14:15 | HHI.PYPN ---
Subjective Chief Complaint: Psychosis Remarks Patient was seen and case discussed with nursing. Patient's insight is improving. He is very verbose today and describes various self-realizations about his behaviors and thought process. Unclear if this is manipulative behavior or genuine. He is behaving well on the unit per nursing. He went to groups and says he had a productive session and discussed some of his goals after discharge. He continues to state that he never threatened anyone before admission. No arguments with any staff today, tolerating medications well Mental Status Examination Appearance: Appropriate Consciousness: Alert, Vigilant Orientation: Person, Place (at least) Motor Activity: Normal gait Speech: Rapid Language: Perseveration Fund of Knowledge: Adequate Attention and Concentration: Inadequate Memory: Impaired Mood: Appropriate Affect: Appropriate Thought Process & Associations: Circumstantial, Tangential Thought Content: Preoccupations Hallucination Type: Other (Remains int stim) Delusion Type: Paranoid Suicidal Ideation: No (unreliable to contract for safety) Suicidal Plan: No Suicidal Intention: No Homicidal Ideation: No (unreliable to contract for safety) Homicidal Plan: No Homicidal Intention: No Insight: Poor Judgment: Poor Results Vitals/IOs Vital Signs Date Time Temp Pulse Resp B/P (MAP) Pulse Ox O2 Delivery O2 Flow Rate FiO2 12/08/17 06:05 97.7 77 18 136/83 (100) 95 12/04/17 17:01 Room Air Assessment & Plan Problem List: (1) Brief psychotic disorder ICD Codes: F23 - Brief psychotic disorder Assessment & Plan Continue current treatment plan Justification for Cont. Inpt. Patient would decompensate in a less restrictive setting Request HC Surrog/Guard Advoc?: Yes Emigdio Granado DO Dec 08, 2017 14:15
[2017-12-08] MEDS ORDERED: hydrOXYzine HCL 50 MG TAB PO PRN (17:00)
[2017-12-08 17:28] VITALS: BP 156/84; PULSE 99; RESP 17; TEMP 98.4; O2SAT 96
[2017-12-08] MEDS: PRAVASTATIN SOD 80 MG TAB PO SCH (20:24)
[2017-12-09] MEDS: LORazepam 1 MG TAB PO PRN ×2 (00:16→13:22)
[2017-12-09] MEDS: ACETAMINOPHEN 325 MG TAB PO PRN ×2 (00:18→13:23)
[2017-12-09 05:44] VITALS: BP 136/80; PULSE 85; RESP 18; TEMP 96.6; O2SAT 96
[2017-12-09] MEDS: risperiDONE ODT 1 MG TAB PO SCH (09:12)
[2017-12-09] MEDS: FOLIC ACID 1 MG TAB PO SCH (09:12)
[2017-12-09] MEDS: THIAMINE HCL 100 MG TAB PO SCH (09:12)
[2017-12-09] MEDS: LISINOPRIL 10 MG TAB PO SCH (09:12)
[2017-12-09] MEDS: HYDROCHLOROTHIAZIDE 25 MG TAB PO SCH (09:13)
[2017-12-09 11:32] LABS: ANA SCREEN POS (NEG)
[2017-12-09] MEDS ORDERED: RISP25P IM (11:35)
[2017-12-09] MEDS ORDERED: RISP1TAB2 PO (11:35)
--- NOTE | 2017-12-09 11:36 | HHI.DS ---
Psychiatry Discharge Summary Inpatient Psychiatric care?: Yes Advance Directive: No Reason Not Provided: declined Mental Health AdvanceDirective: No Health Care Proxy: No Admission Admission Date Dec 04, 2017 at 13:44 Admission Diagnosis: (1) Brief psychotic disorder ICD Code: F23 - Brief psychotic disorder Brief History 67-year-old male brought in under a Ravi act for bizarre behavior including psychotic symptoms. Patient reportedly is [facility] and is feeling angry due to active posttraumatic stress disorder. He describes nightmares and flashbacks. According to the Ravi act he does not want to hurt himself but does want to hurt others. According to the main ED physician, he expressed suicidal thoughts. He also stated he wants to hurt someone who he describes as a victim's advocate at the [facility]. He states his medication is not working and he is talking to animals in his backyard. The patient is a poor historian and he is obviously psychotic. He is experiencing auditory hallucinations. He is experiencing paranoid delusions. He feels that multiple people in the hospital system, the government system, etc. are trying to harm him. He provides unreasonable answers to questions, including the doses and frequency of the medications he takes. For example, he stated he took 30 mg of BuSpar 4 times a day. He demonstrates frequent looseness of associations and is unable to provide a cogent history as to why he is here. Patient's toxicology screen is negative Tobacco Use In Past 30 Days: No Tobacco Past 30 Days Alcohol Use: Never Hospital Course Patient was admitted to a locked, inpatient psychiatric unit. A general medical consultation was obtained. Appropriate precautions were in place throughout patient's hospital stay. Patient was seen and examined on the unit by psychiatry and also visited by counselor. Psychotropic medications were adjusted. Patient was started on Risperdal for the management of psychotic symptoms to good effect. He tolerated the Risperdal well without side effects and was agreeable to initiating Risperdal Consta. Patient had improvement in presenting psychiatric symptomatology during the course of his hospital stay. There was no evidence of any suicidality or homicidality on the inpatient unit. The patient's behavior improved with benefit of psychopharmacologic treatment. Collateral was obtained from the patient's sister as well as from his outpatient mental health provider, Dr. Corral. On the day of discharge: Patient seen and examined with nurse. Chart reviewed. Case discussed with nursing staff. No behavioral issues overnight. Case discussed with counselor who has reached out to the patient's sister today. Per counselor, sister visited the patient over the weekend and found him much improved. She feels that he is safe and appropriate for discharge at this time. On my examination today, the patient is requesting discharge from the inpatient psychiatric unit today. He denies any suicidal or homicidal ideation, intent or plan on direct questioning and contracts for safety. Mood is stable, and I can elicit no depressive or hypomanic/manic symptoms in this patient at this time. He denies any audiovisual hallucinations, and I can elicit no delusional material. There is no evidence of any impairment in reality construction in this patient at this time. He tells me "I own the reason that I'm here" alluding to his presenting threatening behavior. He denies side effects from medications. No physical complaints. Suicide and violence risk assessment on day of discharge both suggest lower imminent risk, and the patient's level of function is adequate for outpatient care. The patient does not meet criteria for ongoing involuntary psychiatric hospitalization. I have no basis to retain the patient on the inpatient unit over his objection any longer. He is not interested in voluntary psychiatric hospitalization. I must therefore arrange for his discharge home today with psychiatric follow-up as arranged by counselor. Patient also expresses interest and pursuing intensive outpatient treatment again through the [facility], and I have asked that counselor to link the patient back with that service prior to discharge. Patient is also to follow-up with primary care. Patient to return to psychiatric emergency room for any concerning psychiatric symptoms as part of a general safety plan. Results Blood Pressure 136 / 80 Vital Signs Date Time Temp Pulse Resp B/P (MAP) Pulse Ox O2 Delivery O2 Flow Rate FiO2 12/09/17 05:44 96.6 85 18 136/80 (98) 96 Laboratory Tests Test 12/06/17 11:40 Ammonia 39 MCMOL/L (11-32) Anti-Nuclear Antibody Screen POS (NEG) Laboratory Results Test 12/05/17 09:40 12/06/17 11:40 Cholesterol Level 226 MG/DL (120-200) HDL Cholesterol 43.0 MG/DL (40.0-60.0) LDL Cholesterol 153 MG/DL (0-99) Triglycerides Level 151 MG/DL (42-150) Hemoglobin A1c 5.8 % (4.3-6.0) Summary of Procedures None done Imaging None done Pending results at discharge: Yes (extended urine toxicology and JULIO CÉSAR titer pending) Medications # of Antipsychotic meds at D/C: 1 Approp Antipsych med options 1 - Minimum of three failed multiple trials of monotherapy. 2 - Documented plan to taper to monotherapy due to previous use of multiple meds OR cross-taper in progress at D/C. 3 - Documentation of augmentation of Clozapine. 4 - Justification other than those listed in allowable values 1-3, document here : Discharge Discharge Date: Dec 09, 2017 Discharge Diagnosis: (1) Brief psychotic disorder Diagnosis: Principal (stabilized) ICD Code: F23 - Brief psychotic disorder Pt Condition on Discharge: Stable Discharge Disposition: Discharge Home Discharge Instructions Diet Instructions: As Tolerated, No Restrictions Activities you can perform: Weight Bearing as Tracy Scheduled Appointment: [facility] Appointment Date: Dec 09, 2017 New Orders: AMMONIA - 1 Week New Medications: Risperidone (Risperidone) 1 Mg Tab 1 MG PO BID for Mental Health, #21 TAB 0 Refills Take oral Risperdal for 3 weeks and then stop. Be sure to get your next Risperdal Consta injection as ordered. Risperidone Inj (Risperdal Consta Inj) 25 Mg/2 Ml Inj 25 MG IM Q14D for Mental Health, #2 VIAL 0 Refills This dose of Risperdal Consta is due on 12/23/2017. Continued Medications: Albuterol 18 GM Inh (Ventolin Hfa 18 GM Inh) 90 Mcg/Act Aer 2 PUFF INH Q4-6H PRN for SHORTNESS OF BREATH, #1 INHALER 0 Refills Hydrochlorothiazide (Hydrochlorothiazide) 25 Mg Tab 25 MG PO DAILY, #30 TAB 0 Refills Lisinopril (Lisinopril) 10 Mg Tab 10 MG PO DAILY, #30 TAB 0 Refills Simvastatin (Simvastatin) 40 Mg Tab 40 MG PO HS for Cholesterol Management, #30 TAB 0 Refills Tramadol (Tramadol) 50 Mg Tab 50 MG PO BID PRN for PAIN, TAB 0 Refills Discontinued Medications: Buspirone (Buspirone) 30 Mg Tab 30 MG PO BID for Anxiety, TAB 0 Refills Prednisone (Prednisone) 50 Mg Tab 50 MG PO DAILY for 5 Days, TAB 0 Refills Discharge Time > 30 minutes Mental Status Examination Appearance: Appropriate (in hospital attire, well groomed) Consciousness: Alert Orientation: x4 Motor Activity: Normal gait, Other (no hand tremor, no dystonia, no dyskinesia , no other motoric abnormalities noted) Speech: Unremarkable Language: Adequate Fund of Knowledge: Adequate Attention and Concentration: Adequate Memory: Unremarkable (grossly intact on clinical exam) Mood: Appropriate Affect: Appropriate Thought Process & Associations: Intact Thought Content: Appropriate Hallucination Type: None Delusion Type: None Suicidal Ideation: No Suicidal Plan: No Suicidal Intention: No Homicidal Ideation: No Homicidal Plan: No Homicidal Intention: No Insight: Fair Judgment: Adequate (fair) Discharge/Advance Care Plan Health Problems: (1) Brief psychotic disorder Goals to promote your health * To prevent worsening of your condition and complications * To maintain your health at the optimal level Directions to meet your goals Take your medications as prescribed Follow your dietary instruction Follow activity as directed Keep your appointments as scheduled Take your immunizations and boosters as scheduled If your symptoms worsen call your PCP, if no PCP go to Urgent Care Center or Emergency Room For 24/06 questions related to your inpatient stay or results of tests pending at discharge, please contact Dr. Rajeev Weber at Smoking is Dangerous to Your Health. Avoid second hand smoking Rajeev Weber MD Dec 09, 2017 11:36
[2017-12-09] MEDS ORDERED: risperiDONE EXT REL INJ 25 MG/2 ML VIAL IM ONE (11:45)
[2017-12-11 16:02] LABS: ANA PATTERN DIFFUSE
== END 2017-12-09 14:15 | disposition home or self-care (01) | DRG 885 ==
LOC: NEPJ 10:52 → NEDA 13:44 → H270 17:40
PROVIDERS: ADMIT Psychiatry & Neurology Psychiatry; ATTEND Psychiatry & Neurology Psychiatry
DX: F23 Brief psychotic disorder (principal); R45.851 Suicidal ideations; R45.850 Homicidal ideations; F43.10 Post-traumatic stress disorder, unspecified; I10 Essential (primary) hypertension; E78.5 Hyperlipidemia, unspecified; D72.829 Elevated white blood cell count, unspecified; R73.9 Hyperglycemia, unspecified; H91.90 Unspecified hearing loss, unspecified ear; F12.10 Cannabis abuse, uncomplicated; Z88.5 Allergy status to narcotic agent
CPT/HCPCS: 80053; 80061; 80307; 82140; 82306; 82607; 83036; 84439; 84443; 85025; 86038; 86039; 86592; 86703; 93005; 99285; G0481; J2060; J2794